=== PATIENT | male | born 1965 | race Caucasian/White ===

== ENCOUNTER 2018-11-19 20:45 | Emergency (ER) | payer OTHER ==
[2018-11-19] MEDS ORDERED: TETRACAINE HCL 0.5% OPHTH SOL 1 DROP ONE (21:04)
[2018-11-19] MEDS ORDERED: LIDOCAINE 1% 10 ML VIAL INJ ONE (21:18)
[2018-11-19] MEDS ORDERED: LIDOCAINE 2 % GEL 5 ML TUBE TOP ONE ×2 (22:06→23:04)
[2018-11-19] MEDS ORDERED: MINERAL OIL/PETROLATUM OPHTH OINT 1 APPLIC UD ONE (22:20)
[2018-11-19] MEDS ORDERED: MORPHINE SULFATE INJ 10 MG/ML VIAL IM ONE (22:43)
[2018-11-19] MEDS ORDERED: MORPHINE SULFATE INJ 10 MG/ML VIAL ONE (22:43)
[2018-11-19] MEDS ORDERED: CIPROFLOXACIN 0.3% OPHTH SOL 1 DROP ONE (22:55)
[2018-11-19] MEDS ORDERED: CIPROFLOXACIN 0.3% OPHTH SOL 1 DROP RIGHT_EYE ONE (23:02)
[2018-11-19] MEDS ORDERED: MINERAL OIL/PETROLATUM OPHTH OINT 1 APPLIC UD RIGHT_EYE ONE (23:03)
--- NOTE | 2018-11-19 23:03 | ED.PDOC ---
History of Present Illness - General Chief Complaint: Eye Problems Stated Complaint: super glue in eye Time Seen by Provider: 11/19/18 20:50 Source: patient - History of Present Illness Initial Comments: the patient is a 52-year-old male presenting to the emergency room secondary tohaving gotten superglue stuck in his right eye. He thought they were his eyedrops. The right eye is glued shut for the lateral three quarters. He is able to move the eye underneath the eyelid. the eye itself seems to be causing minimal pain.obviously we are unable to assess visual acuity.they did run warm water quite appropriately over theeye immediately after it happened. Timing/Duration: 1/2 hour Severity: severe Improving Factors: nothing Worsening Factors: nothing Associated Symptoms: headaches - he is getting a headache from the discomfort. Allergies/Adverse Reactions: Allergies NO KNOWN ALLERGY Allergy (Verified 11/19/18 22:11) Home Medications: Ambulatory Orders Ciprofloxacin HCl (Ophth) [Ciprofloxacin HCl] 2 drop RIGHT_EYE Q6HR 7 Days leonard 11/19/18 Review of Systems - Review of Systems Constitutional: States: no symptoms reported EENTM: States: eye pain Respiratory: States: no symptoms reported Cardiology: States: no symptoms reported Gastrointestinal/Abdominal: States: no symptoms reported Genitourinary: States: no symptoms reported Musculoskeletal: States: no symptoms reported Skin: States: no symptoms reported Neurological: States: headache Endocrine: States: no symptoms reported All other Systems: No Change from Baseline Past Medical History (General) - Patient Medical History Surgical History: other - Vaccination History Hx Tetanus, Diphtheria Vaccination: Yes - more than 10yrs ago Hx Influenza Vaccination: No Hx Pneumococcal Vaccination: No - Social History Hx Tobacco Use: No Hx Alcohol Use: Yes Family Medical History - Family History Father Hx Family Hypertension: Yes Hx Cardiac Disease: Yes Hx Family Cancer: Yes Physical Exam - Physical Exam General Appearance: Alert, No apparent distress Eye Exam: right other - flu glued shut as per history of present illness, left normal Ears, Nose, Throat: hearing grossly normal Neck: full range of motion Respiratory: no respiratory distress, no accessory muscle use Cardiovascular/Chest: no edema Rectal Exam: deferred Extremity: normal range of motion, non-tender, no pedal edema, other Neurologic: ceo na II-XII nml as tested, alert, normal mood/affect, oriented x 3 Skin Exam: normal color Comments: Vital Signs - 24 hr 11/19/18 11/19/18 20:48 22:00 Temperature 97.7 F 97.4 F L Pulse Rate [ 55 L 61 left] Respiratory 18 18 Rate Blood Pressure 122/76 121/86 [left] O2 Sat by Pulse 95 94 L Oximetry Progress - Progress Progress: 11/19/18 23:04 the patient is a 52-year-old male presenting to the emergency room secondary to having glued his eyes shut with acrylic nail glue. After risks and benefits were explained we did attempt to remove some of the adhesive. we i nitially tried our nail swiss remover pads that we had here in the hospital. They failed to do anything as they did not have any acetone in them. We attempted warm water compresses which did not loosen the glue either. next we put a mineral oil ointment on the glue and left hip for approximately 20 minutes. This failed to soften the glue. we then tried applying a small amount of acetone with a Q-tip which also failed to loosen up the glue. Due to the discomfort with these measures we did perform regional nerve blocks around the eye with a total of 6 cc of lidocaine without epinephrine. This did help somewhat. We also used topical tetracaine drops and then viscous lidocaine and attempt to reduce the discomfort. He also did receive a shot of morphine. He does appear to be moving the eyeball around underneath the eye lid well and with minimal discomfort. The patient is going to be discharged with ciprofloxacin ophthalmic drops to be used 2-3 times daily until the eye opens. He will need to see an scanning tech once the eye openings to evaluate the eye itself. In the meantime, warm compresses, warm shower and a thin layer of Vaseline may also help to accelerate the breakdown of the glue. [email or web address] han [id number] Departure - Departure Clinical Impression: Injury of eyelid, superficial Qualifiers: Encounter type: initial encounter Laterality: right Qualified Code(s): S00.201A - Unspecified superficial injury of right eyelid and periocular area, initial encounter ICD-10 Supporting Text: the patient glued the right eyelids together. Disposition: Discharge to Home or Self Care Condition: Fair Departure Forms: ED Discharge - Pt. Copy, Patient Portal Self Enrollment Instructions: DI for Eye Pain Diet: regular diet Activity: increase activity as tolerated Prescriptions: Ciprofloxacin HCl (Ophth) [Ciprofloxacin HCl] 2 drop RIGHT_EYE Q6HR 7 Days leonard Home Medications: Ambulatory Orders Ciprofloxacin HCl (Ophth) [Ciprofloxacin HCl] 2 drop RIGHT_EYE Q6HR 7 Days leonard 11/19/18 Additional Instructions: the patient presented with having accidentally glued his right eyelids together. Multiple attempts were made to remove the glue and ultimately open the eyelids, unfortunately without success. It is felt that further attempts would only increase the likelihood of actually harming the patient in the long-term. The glue should breakdown and release within the next 4-7 days. The patient was given an eye patch. The patient is going to be discharged with ciprofloxacin ophthalmic drops to be used 2-3 times daily until the eye opens. He will need to see an scanning tech once the eye openings to evaluate the eye itself. In the meantime, warm compresses, warm showers and a thin layer of Vaseline may also help to accelerate the breakdown of the glue.
[2018-11-19] MEDS ORDERED: TETRACAINE HCL 0.5% OPHTH SOL 1 DROP RIGHT_EYE ONE (23:04)
[2018-11-19 23:15] VITALS: BP 133/85; TEMP 96.5; O2SAT 99
== END 2018-11-19 23:20 | disposition home or self-care (01) ==
LOC: ER 20:45
DX: T15.81XA Foreign body in other and multiple parts of external eye, right eye, initial encounter (principal); T52.8X1A Toxic effect of other organic solvents, accidental (unintentional), initial encounter; R51 Headache; Y92.9 Unspecified place or not applicable

== ENCOUNTER → 2020-04-18 | Outpatient (CLI) | payer BC | LOC: GMAL 14:55 | PROVIDERS: ATTEND Family Medicine | DX: E53.8 Deficiency of other specified B group vitamins (principal); Z79.899 Other long term (current) drug therapy; Z13.220 Encounter for screening for lipoid disorders; E29.1 Testicular hypofunction; E83.51 Hypocalcemia; R53.83 Other fatigue ==